=== PATIENT | female | born 1950 | race American Indian/Alaskan Native ===

== ENCOUNTER 2021-11-12 15:05 | Emergency (ER) | payer MEDICARE ==
[2021-11-12 15:14] VITALS: BP 112/68
--- NOTE | 2021-11-12 15:14 | Emergency Department Report ---
Stated Complaint: WEAKNESS/DROOP FACE Time Seen by Provider: 11/12/21 15:11 - HPI History of Present Illness: This 11-year-old female presents emergency department for evaluation of generalized weakness. Patient states that she gave patient an Ambien 5 mg around 130 today they found patient laying elevated asleep and patient complains of generalized weakness. Daughter states that she is concerned that patient may have fallen and is unable to tell her. - ROS Review of Systems: Patient complains of generalized weakness. No unilateral weakness noted, no pronator drift noted, patient follows commands appropriately. - Exam Physical Exam: Alert and oriented x3, no unilateral weakness noted, patient drowsy in triage but easily arousable MSE screening note: Focused history and physical exam performed. Due to findings the following was ordered: CBC, CMP, troponin, EKG, CT scan of head. ED Disposition for MSE Condition: Stable
[2021-11-12 17:17] LABS: Hematocrit 35.2 % (30.3-42.9); Hemoglobin 11.5 gm/dl (10.1-14.3); Mean Corpuscular HGB Conc 33 % (30-34); Mean Corpuscular Volume 82 fl (79-97); Platelet Count 219 K/mm3 (140-440); Red Cell Distribution Width 14.2 % (13.2-15.2)
[2021-11-12 17:27] LABS: Alanine Aminotransferase 9 units/L (7-56); Albumin 4.3 g/dL (3.9-5); BUN/Creatinine Ratio 17; Blood Urea Nitrogen 15 mg/dL (7-17); Calcium 9.8 mg/dL (8.4-10.2); Hemolysis Index 0
--- NOTE | 2021-11-15 18:06 | Electrocardiograph Report ---
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
== END 2021-11-13 05:29 | disposition left against medical advice (07) ==
LOC: ED 15:05
DX: R53.1 Weakness (principal); Z53.21 Procedure and treatment not carried out due to patient leaving prior to being seen by health care provider
CPT/HCPCS: 36415; 80053; 84484; 85027; 93005; 99283